=== PATIENT | female | born 1960 | race Caucasian/White ===

== ENCOUNTER → 2016-07-11 | Outpatient (CLI) | payer OTHER ==
[~2016-07-11] MED LIST: ACID REDUCER 1150 MG PO; ADVIL,MOTRIN,R200 MG PO; AMOXICILLIN500 MG PO; ASPIR 8181 MG PO; AUGMENTIN XR 101 TE1 PO; BENADRYL25 M1 PO; BENADRYL25 M2 PO; BENADRYL50 MG PO; BUPROPION HCL150 MG PO; CEPHALEXIN500 M1 PO; CLINDAMYCIN HC300 MG PO; COZAAR25 M1 PO; CYCLOBENZAPRINE10 MG PO; EFFIENT10 M1 PO; FAMOTIDINE20 M1 PO; HYDR25T PO; HYDROCODONE BIT1 T11 PO; IBUPROFEN1 CRY; LIPITOR40 MG PO; LISINOPRIL5 MG PO; MAG-OX 400400 MG PO; METOPROLOL25 MG PO; MULTIVITAMIN1 TAB PO; NAPROSYN500 MG PO; NITROSTAT0.4 MG SL; NORCO 325 MG-101 TAB PO; NORCO 325 MG-51 TAB PO; NORVASC10 MG PO; NORVASC5 MG PO; ONDANSETRON2 MG/ML IV; ONDANSETRON2 MG/ML PO; PEN-VK500 MG PO; PERIDEX 480 ML480 ML PO; PRAVASTATIN SOD10 MG PO; RANITIDINE150 MG PO; TYLENOL325 M2 PO; ULTRAM50 MG PO; VITAMIN D2000 IU PO; VITAMIN D50000 I3 PO; ZESTRIL,PRINIVIL5 MG PO
--- NOTE | ~2016-07-11 | ST ---
[place], [place] EXERCISE STRESS TEST REPORT NAME[facility] #: [id number] UNIT #: [id number] ROOM: DOCTOR: MOE STRICKLAND MD BIRTHDATE: [birth year] DOS: 07/11/2016 EXERCISE TREADMILL STRESS TEST 1916. INDICATION: Angina. REFERRING: Dr. Kirby The patient underwent standard protocol Lexiscan stress EKG. The patient's baseline EKG showed normal sinus rhythm, nonspecific ST-T wave changes. The patient's baseline heart rate 65 beats per minute with a blood pressure 160/92. The patient's peak heart rate of 100 with a blood pressure of 132/84. The patient had no chest pain. The patient had no arrhythmias and the patient had no ischemic EKG changes. SUMMARY OF FINDINGS: 1. Unremarkable Lexiscan stress EKG. 2. Please see separate report for perfusion scan results. MOE STRICKLAND MD CM:STRESS:EXERCISE STRESS TEST REPORT [id number] MOE STRICKLAND MD
== END | disposition home or self-care (01) ==
LOC: CARD 03:05
DX: I20.0 Unstable angina (principal); I25.2 Old myocardial infarction; R07.9 Chest pain, unspecified

== ENCOUNTER → 2016-07-28 | Outpatient (CLI) | payer OTHER ==
[2016-07-28 13:34] LABS: BILIRUBIN NEGATIVE (NEGATIVE); BLOOD TRACE-INTACT (NEGATIVE); CLARITY CLEAR (CLEAR); COLOR YELLOW (YELLOW); GLUCOSE NEGATIVE (NEGATIVE); KETONE NEGATIVE (NEGATIVE); LEUKO ESTERASE NEGATIVE (NEGATIVE); NITRITE NEGATIVE (NEGATIVE); PH 6.5 (5.0-9.0); PROTEIN NEGATIVE (NEGATIVE); SPECIFIC GRAVITY <= 1.005 (1.005-1.030); UROBILINOGEN 0.2 E.U./dl (0.2-1.0)
[2016-07-28 13:42] LABS: URINE TP/CRE RATIO 0.1 (<0.21)
[2016-07-28 13:47] LABS: BACTERIA 2+
[2016-07-28 13:54] LABS: ALBUMIN 3.8 gm/dl (3.1-4.5); MAGNESIUM 2.2 mg/dL (1.5-2.1); PHOSPHOROUS 2.8 mg/dL (2.5-4.9); POTASSIUM 4.2 mmol/L (3.5-5.1)
== END | disposition home or self-care (01) ==
LOC: LAB 12:56
PROVIDERS: Internal Medicine Nephrology
DX: N18.3 Chronic kidney disease, stage 3 (moderate) (principal)

== ENCOUNTER → 2017-01-11 | Outpatient (CLI) | payer OTHER | END | disposition home or self-care (01) | LOC: RAD 14:58 | DX: M50.90 Cervical disc disorder, unspecified, unspecified cervical region (principal); J44.9 Chronic obstructive pulmonary disease, unspecified; I21.3 ST elevation (STEMI) myocardial infarction of unspecified site; M47.892 Other spondylosis, cervical region; R51 Headache; R20.0 Anesthesia of skin; F17.213 Nicotine dependence, cigarettes, with withdrawal ==

== ENCOUNTER → 2017-02-23 | Outpatient (CLI) | payer OTHER | END | disposition home or self-care (01) | LOC: CP 10:04 | DX: R05 Cough (principal) ==

== ENCOUNTER → 2017-05-02 | Outpatient (CLI) | payer OTHER | END | disposition home or self-care (01) | LOC: MRI 09:51 | DX: M48.02 Spinal stenosis, cervical region (principal); M50.90 Cervical disc disorder, unspecified, unspecified cervical region ==